=== PATIENT | male | born 1985 | race Caucasian/White ===

== ENCOUNTER → 2019-09-19 10:56 | Outpatient (CLI) | payer OTHER, SELFPAY ==
--- NOTE | 2019-09-19 11:20 | DI.CT.S_ITS ---
PROCEDURE: CT HEAD/BRAIN WO/W CON INDICATIONS: Ocular pain, left eye TECHNIQUE: 4.5 mm thick angled axial sections acquired from the foramen magnum to the vertex before and after the administration of intravenous contrast, with coronal and sagittal reformats. For radiation dose reduction, the following was used: automated exposure control, adjustment of mA and/or kV according to patient size. COMPARISON: None. FINDINGS: Image quality: Excellent. CSF Spaces: Basal cisterns are patent. No extra-axial fluid collections. Ventricles are normal in size and shape. Brain: No midline shift. No intracranial bleeds or masses. No abnormal intracranial enhancement. May-white interface appears normal. Skull and face: Calvarium and visualized facial bones appear intact, without suspicious lesions. Sinuses: Visualized sinuses and mastoids are clear. IMPRESSION: Normal CT examination, without an imaging explanation for the patient's presenting history of left ocular pain. If imaging followup is clinically desired, please consider an orbits protocol MRI, without and with contrast (assuming that there is no contraindication). Dictated by: Ke Kang M.D. on 09/19/2019 at 10:27 Approved by: Ke Kang M.D. on 09/19/2019 at 10:29
== END ==
PROVIDERS: Referring Provider Physician Assistant Medical; Visit Provider Physician Assistant Medical
DX: H57.12 Ocular pain, left eye (principal); H92.02 Otalgia, left ear; K08.89 Other specified disorders of teeth and supporting structures
CPT/HCPCS: 70470; Q9967